=== PATIENT | female | born 1995 | race American Indian/Alaskan Native ===

== ENCOUNTER 2021-07-09 14:56 | Inpatient (IN) | payer SELFPAY ==
[2021-07-09] MEDS ORDERED: LACTATED RINGERS 1,000 ML ONE ×2 (15:50→17:15)
[2021-07-09] MEDS ORDERED: fentaNYL 100 MCG/2 ML INJ ONE (17:15)
--- NOTE | 2021-07-09 17:29 | History and Physical Report ---
History of Present Illness Date of examination: 07/09/21 Date of admission: 07/09/21 14:57 Chief complaint: at History of present illness: at 39.4wks by pt report with EDC 07/12/21. Pt was taken via ambulance from [facility] where her papers were held and using urdu/creole clip wrapper phone per our triage nurse pt c/o ctx, denies LOF or vag bleed; pt admits to movement. No records, however pt told the triage nurse that she had care in [place]. Past History Past Medical History: no pertinent history - Obstetrical History : 1 Medications and Allergies Allergies Allergy/AdvReac Type Severity Reaction Status Date / Time No Known Allergies Allergy Verified 07/09/21 17:11 Active Meds: Active Medications Acetaminophen (Acetaminophen 325 Mg Tab) 650 mg PO Q4H PRN PRN Reason: Pain, Mild (1-3) Carboprost Tromethamine (Carboprost Tromethamine 250 Mcg/1 Ml Inj) 250 mcg IM ONCE PRN PRN Reason: Uterine Bleeding Ephedrine Sulfate (Ephedrine Sulfate 50 Mg/1 Ml Inj) 10 mg IV Q2M PRN PRN Reason: Hypotension Fentanyl (Fentanyl 100 Mcg/2 Ml Inj) 100 mcg IV Q2H PRN PRN Reason: Pain,Severe (7-10) LABOR PAIN Lactated Ringer's (Lactated Ringers) 1,000 mls @ 125 mls/hr IV DIRECT ONOFRE Oxytocin/Sodium Chloride (Pitocin/Ns 30 Unit/500ml) 30 units in 500 mls @ 40 mls/hr IV TITR ONOFRE; Protocol Ampicillin Sodium (Ampicillin/Ns 2 Gm/100 Ml) 2 gm in 100 mls @ 100 mls/hr IV ONCE@1730 ONOFRE; Protocol Stop: 07/09/21 21:00 Lidocaine (Lidocaine (2%) 20 Mg/1 Ml Vial 20 Ml Mdv) 20 ml INFILTRATI ONCE@1730 ONOFRE Stop: 07/10/21 17:29 Loperamide HCl (Loperamide 2 Mg Cap) 2 mg PO ONCE PRN PRN Reason: give with Hemabate Methylergonovine Maleate (Methylergonovine Maleate 0.2 Mg/Ml Vial) 0.2 mg IM ONCE PRN PRN Reason: Uterine Bleeding Mineral Oil (Mineral Oil 30 Ml Oral Liqd) 30 ml PO QHS PRN PRN Reason: Constipation Misoprostol (Misoprostol 200 Mcg Tab) 800 mcg RI ONCE PRN PRN Reason: Uterine Bleeding Nalbuphine HCl (Nalbuphine 10 Mg/1 Ml Inj) 10 mg IV Q2H PRN PRN Reason: Pain, Moderate (4-6) Ondansetron HCl (Ondansetron 4 Mg/2 Ml Inj) 4 mg IV Q8H PRN PRN Reason: Nausea And Vomiting Oxytocin (Oxytocin 10 Unit/1 Ml Inj) 10 unit IM ONCE PRN PRN Reason: Uterine Bleeding Terbutaline Sulfate (Terbutaline 1 Mg/1 Ml Inj) 0.25 mg SUB-Q ONCE PRN PRN Reason: Hyperstimulation/Hypertonicity Review of Systems All systems: negative (painful ctx) - Vital Signs Vital signs: Vital Signs Pulse BP 81 121/75 07/09/21 14:58 07/09/21 14:58 Temp Pulse Resp BP Pulse Ox 97.9 F 102 H 18 121/69 100 07/09/21 15:09 07/09/21 17:03 07/09/21 17:24 07/09/21 16:14 07/09/21 17:03 - Physical Exam Breasts: Positive: deferred Cardiovascular: Regular rate Lungs: Positive: Normal air movement Abdomen: Positive: soft Vulva: both: normal Vagina: Positive: normal moisture Uterus: Positive: normal size (non-tender, gravid) Extremities: Positive: normal - Obstetrical FHR: category 1 Uterine Contraction Monitor Mode: External Cervical Dilatation: 5 Cervical Effacement Percentage: 90 station: -1 Uterine Contraction Pattern: Regular Uterine Contraction Intensity: Moderate Results Result Diagrams: 07/09/21 15:30 All other labs normal. Assessment and Plan Term IUP in labor, 5cm and previously 7cm by triage nurse, unknown GBS 1. Admit to labor and delivery, pt has no documents and name used by admissions as pt stated and therefore, will do walk in labs 2. Will give amp for GBS prophylaxis 3. U/S for gestational age, presentation, placental location, LEA; BPP 4. Expectant mgt and pain med as desired Plan of care discussed with pt.
[2021-07-09] MEDS ORDERED: ACETAMINOPHEN 325 MG TAB PO PRN (17:30)
[2021-07-09] MEDS ORDERED: LOPERAMIDE 2 MG CAP PO PRN (17:30)
[2021-07-09] MEDS ORDERED: ePHEDrine SULFATE 50 MG/1 ML INJ IV PRN ×2 (17:30→19:16)
[2021-07-09] MEDS ORDERED: NalbUPHINE 10 MG/1 ML INJ IV PRN (17:30)
[2021-07-09] MEDS ORDERED: METHYLERGONOVINE MALEATE 0.2 MG/ML VIAL IM PRN (17:30)
[2021-07-09] MEDS ORDERED: miSOPROStol 200 MCG TAB PR PRN (17:30)
[2021-07-09] MEDS ORDERED: ONDANSETRON 4 MG/2 ML INJ IV PRN (17:30)
[2021-07-09] MEDS ORDERED: fentaNYL 100 MCG/2 ML INJ IV PRN (17:30)
[2021-07-09] MEDS ORDERED: LIDOCAINE (2%) 20 MG/1 ML VIAL 20 ML MDV INFILTRATI SCH (17:30)
[2021-07-09] MEDS ORDERED: AMPICILLIN/NS 2 GM/100 ML 2 GM/100 ML BAG IV SCH (17:30)
[2021-07-09] MEDS ORDERED: TERBUTALINE 1 MG/1 ML INJ SUB-Q PRN (17:30)
[2021-07-09] MEDS ORDERED: CARBOPROST TROMETHAMINE 250 MCG/1 ML INJ IM PRN (17:30)
[2021-07-09] MEDS ORDERED: OXYTOCIN 10 UNIT/1 ML INJ IM PRN (17:30)
[2021-07-09] MEDS ORDERED: LACTATED RINGERS 1,000 ML IV SCH (17:30)
[2021-07-09 17:37] LABS: Hematocrit 32.3 % (30.3-42.9); Hemoglobin 10.5 gm/dl (10.1-14.3); Mean Corpuscular HGB Conc 33 % (30-34); Platelet Count 189 K/mm3 (140-440); Red Blood Count 4.77 M/mm3 (3.65-5.03); Red Cell Distribution Width 16.2 % (13.2-15.2)
[2021-07-09 17:43] LABS: Mean Corpuscular Volume 68 fl (79-97)
[2021-07-09 17:48] LABS: Amphetamine Screen,Urine Negative; Benzodiazepines Screen,Urine Negative; Cannabinoid Screen,Urine Negative; Cocaine Screen,Urine Negative; Methadone Screen,Urine Negative; Opiate Screen,Urine Negative
[2021-07-09] MEDS ORDERED: MINERAL OIL 30 ML ORAL LIQD PO PRN (18:00)
[2021-07-09] MEDS ORDERED: OXYTOCIN DRIP 30 UNITS/500 ML BAG IV SCH ×2 (18:00→22:00)
--- NOTE | 2021-07-09 18:43 | Ultrasound Report ---
OB ultrasound Biophysical profile INDICATION: well-being FINDINGS: BPD measures 35 weeks 0 days. Head circumference 38 weeks 1 day. Abdominal circumference 36 weeks 2 days. Femoral length 39 weeks 5 days. Cephalic presentation with single live intrauterine pr egnancy. Heart rate 1 44 bpm. LEA 8.4 cm. Weight 3144 g. Biophysical profile 6 out of 8 with no breathing movements identified. IMPRESSION: 1. Biophysical profile 6 out of 8. No breathing movements identified. 2. Ultrasound age 37 weeks 2 days. heart rate 1 44 bpm. Signer Name: Ulises Blair MD Signed: 07/09/2021 6:39 PM Workstation Name: [id number]
--- NOTE | 2021-07-09 19:10 | Anesthesia Consultation ---
Anesthesia Consult and Med Hx Date of service: 07/09/21 - Airway Anesthetic Teeth Evaluation: Poor ROM Head & Neck: Adequate Mental/Hyoid Distance: Adequate Mallampati Class: Class II Intubation Access Assessment: Good - Pulmonary Exam CTA: Yes - Cardiac Exam Cardiac Exam: RRR - Pre-Operative Health Status ASA Pre-Surgery Classification: ASA2 Proposed Anesthetic Plan: Epidural - Pulmonary Hx Smoking: No Hx Asthma: No Hx Respiratory Symptoms: No SOB: No COPD: No Home Oxygen Therapy: No Hx Pneumonia: No Hx Sleep Apnea: No - Cardiovascular System Hx Hypertension: No Hx Coronary Artery Disease: No Hx Heart Attack/AMI: No Hx Angina: No Hx Percutaneous Transluminal Coronary Angioplasty (PTCA): No - Central Nervous System Hx Neuromuscular Disorder: No - Endocrine Hx Insulin Dependent Diabetes: No Hx Non-Insulin Dependent Diabetes: No Hx Thyroid Disease: No - Hematic Hx Anemia: Yes - Other Systems Hx Alcohol Use: No Hx Substance Use: No Hx Obesity: Yes
[2021-07-09] MEDS ORDERED: NALOXONE 2 MG/2 ML INJ IV PRN (19:16)
--- NOTE | 2021-07-09 19:17 | Progress Note ---
Labor Epidural - Labor Epidural Start Time: 18:42 Stop Time: 18:57 Performed by:: ISAK RAYGOZA Procedure: Patient is requesting epidural for labor pain. H&P and labs reviewed. Procedure explained, questions answered, consent obtained. Patient placed in sitting position with monitors applied. Timeout performed immediately before start of procedure. Prep/drape in usual sterile fashion. Skin localized 3 mL 1% lidocaine at L[3]-L[4] interspace. 17-gauge Touhy epidural needle advanced to DANA with saline at [6] cm. No blood/CSF noted via epidural needle. Epidural catheter advanced to [10] cm. Negative aspiration for blood and CSF via catheter, negative response to test dose 3 ml 1.5% lidocaine w/ Epi. Sterile dressing applied followed by tape reinforcement. Patient tolerated procedure well. No immediate complications noted.
[2021-07-09] MEDS ORDERED: fentaNYL-BUPIV 2 MCG/ML-0.125% 200 MCG/100 ML BAG EPIDURAL SCH (20:00)
--- NOTE | 2021-07-09 21:28 | Ultrasound Report ---
US OB limited INDICATION / CLINICAL INFORMATION: placenta location COMPARISON: Same-day ultrasound. FINDINGS/IMPRESSION: Anterior placenta is free of the os. No placental lifting or separation. No evidence of placental hem atoma. Signer Name: Christopher Gutierrez MD Signed: 07/09/2021 9:23 PM Workstation Name: [id number]
[2021-07-09] MEDS ORDERED: AMPICILLIN/NS 1 GM/50 ML 1 GM/50 ML BAG IV SCH (22:30)
[2021-07-10] MEDS ORDERED: SODIUM CHLORIDE 0.9% 1000 ML 1,000 ML VG SCH (00:15)
[2021-07-10] MEDS ORDERED: MAGNESIUM HYDROXIDE (MOM) ORAL LIQD UDC PO PRN (04:34)
[2021-07-10] MEDS ORDERED: ONDANSETRON 4 MG/2 ML INJ IV PRN (04:34)
[2021-07-10] MEDS ORDERED: diphenhydrAMINE 25 MG CAP PO PRN (04:34)
[2021-07-10] MEDS ORDERED: BENZOCAINE/MENTHOL 20/0.5% TOP SPRAY 56 GM TP PRN (04:34)
[2021-07-10] MEDS ORDERED: PROMETHAZINE 25 MG TAB PO PRN (04:34)
[2021-07-10] MEDS ORDERED: LANOLIN/ZINC/DIMETHICONE (LANSINOH) 7 GM TP PRN (04:34)
[2021-07-10] MEDS ORDERED: HYDROcodone/ACETAMINOPHEN 5-325 MG TAB PO PRN (04:34)
[2021-07-10] MEDS ORDERED: ACETAMINOPHEN 325 MG TAB PO PRN (04:34)
[2021-07-10] MEDS ORDERED: WITCH HAZEL/ GLYCERIN PAD TP PRN (04:34)
--- NOTE | 2021-07-10 04:38 | Procedure Note ---
OB Delivery Note - Delivery Date of Delivery: 07/10/21 Surgeon: HENRY ARCE Estimated blood loss: 300cc - Vaginal Delivery position: OA Intrapartum events: meconium, precipitous labor- <3hr Delivery induction: none Delivery augmentation: rupture of membranes, pitocin Delivery monitor: external FHT, external uterine, internal FHT, internal uterine Route of delivery: Delivery placenta: spontaneous Delivery cord: 3 umbilical vessels Episiotomy: none Delivery laceration: 2nd degree Delivery repair: vicryl Anesthesia: epidural - Infant A at 1 minute: 8 at 5 minutes: 9
[2021-07-10] MEDS: IBUPROFEN 800 MG TAB PO SCH ×3 (05:20→16:26)
[2021-07-10 06:17] LABS: Hemoglobin 9.3 gm/dl (10.1-14.3); Mean Corpuscular HGB Conc 32 % (30-34); Platelet Count 191 K/mm3 (140-440); Red Blood Count 4.25 M/mm3 (3.65-5.03); Red Cell Distribution Width 16.2 % (13.2-15.2)
[2021-07-10 06:18] LABS: Mean Corpuscular Volume 68 fl (79-97)
--- NOTE | 2021-07-10 07:47 | Post Anesthesia Evaluation ---
- Post Anesthesia Evaluation Patient Participated: Yes Airway Patent: Yes Stable Respiratory Function: Yes Nausea/Vomiting: No Temp > 96.8F: Yes Pain Manageable: Yes Adequeate Hydration: Yes Anesthesia Complications: No Block Receding Appropriately: Yes Patient on Ventilator: No
--- NOTE | 2021-07-10 12:19 | Progress Note ---
Assessment and Plan PPD#1 with early signs of endomyometritis, leucocytosis present 1. Give augmentin and repeat cbc in am 2. Baby held by peds Subjective Date of service: 07/10/21 Principal diagnosis: PPD#1 Interval history: pt has no complaints. Pain controlled with meds, vag bleed less than a period. Pt is breast feeding. Pt denies dysuria Objective - Constitutional Vitals: Vital Signs - 12hr 07/10/21 07/10/21 07/10/21 00:18 00:23 00:28 Temperature Pulse Rate 67 79 68 Respiratory Rate Blood Pressure Blood Pressure [Right] O2 Sat by Pulse 99 99 98 Oximetry O2 Sat by Pulse Oximetry [ Anterior Bilateral Throughout] 07/10/21 07/10/21 07/10/21 00:29 00:33 00:38 Temperature Pulse Rate 68 72 71 Respiratory Rate Blood Pressure 119/71 Blood Pressure [Right] O2 Sat by Pulse 99 100 Oximetry O2 Sat by Pulse Oximetry [ Anterior Bilateral Throughout] 07/10/21 07/10/21 07/10/21 00:42 00:43 00:48 Temperature Pulse Rate 75 88 74 Respiratory Rate Blood Pressure 111/65 Blood Pressure [Right] O2 Sat by Pulse 100 100 Oximetry O2 Sat by Pulse Oximetry [ Anterior Bilateral Throughout] 07/10/21 07/10/21 07/10/21 00:53 00:57 00:58 Temperature Pulse Rate 78 83 73 Respiratory Rate Blood Pressure 108/62 Blood Pressure [Right] O2 Sat by Pulse 100 100 Oximetry O2 Sat by Pulse Oximetry [ Anterior Bilateral Throughout] 07/10/21 07/10/21 07/10/21 01:03 01:08 01:12 Temperature Pulse Rate 81 73 67 Respiratory Rate Blood Pressure 112/60 Blood Pressure [Right] O2 Sat by Pulse 100 100 Oximetry O2 Sat by Pulse Oximetry [ Anterior Bilateral Throughout] 07/10/21 07/10/21 07/10/21 01:13 01:18 01:23 Temperature Pulse Rate 73 86 72 Respiratory Rate Blood Pressure Blood Pressure [Right] O2 Sat by Pulse 100 99 100 Oximetry O2 Sat by Pulse Oximetry [ Anterior Bilateral Throughout] 07/10/21 07/10/21 07/10/21 01:27 01:28 01:33 Temperature Pulse Rate 80 81 78 Respiratory Rate Blood Pressure 110/68 Blood Pressure [Right] O2 Sat by Pulse 99 100 Oximetry O2 Sat by Pulse Oximetry [ Anterior Bilateral Throughout] 07/10/21 07/10/21 07/10/21 01:38 01:43 01:48 Temperature Pulse Rate 83 70 70 Respiratory Rate Blood Pressure 121/68 Blood Pressure [Right] O2 Sat by Pulse 99 98 99 Oximetry O2 Sat by Pulse Oximetry [ Anterior Bilateral Throughout] 07/10/21 07/10/21 07/10/21 01:53 01:58 02:03 Temperature Pulse Rate 79 96 H 86 Respiratory Rate Blood Pressure 124/88 Blood Pressure [Right] O2 Sat by Pulse 99 100 100 Oximetry O2 Sat by Pulse Oximetry [ Anterior Bilateral Throughout] 07/10/21 07/10/21 07/10/21 02:08 02:13 02:18 Temperature Pulse Rate 85 92 H 83 Respiratory Rate Blood Pressure Blood Pressure [Right] O2 Sat by Pulse 99 99 100 Oximetry O2 Sat by Pulse Oximetry [ Anterior Bilateral Throughout] 07/10/21 07/10/21 07/10/21 02:23 02:28 02:33 Temperature Pulse Rate 105 H 72 89 Respiratory Rate Blood Pressure Blood Pressure [Right] O2 Sat by Pulse 100 98 100 Oximetry O2 Sat by Pulse Oximetry [ Anterior Bilateral Throughout] 07/10/21 07/10/21 07/10/21 02:37 02:38 02:43 Temperature Pulse Rate 87 100 H 90 Respiratory Rate Blood Pressure 122/65 126/85 Blood Pressure [Right] O2 Sat by Pulse 100 Oximetry O2 Sat by Pulse Oximetry [ Anterior Bilateral Throughout] 07/10/21 07/10/21 07/10/21 02:49 02:51 02:54 Temperature 98.8 F Pulse Rate 94 H 86 Respiratory 18 Rate Blood Pressure Blood Pressure [Right] O2 Sat by Pulse 100 100 Oximetry O2 Sat by Pulse Oximetry [ Anterior Bilateral Throughout] 07/10/21 07/10/21 07/10/21 02:59 03:04 03:09 Temperature Pulse Rate 86 81 80 Respiratory Rate Blood Pressure Blood Pressure [Right] O2 Sat by Pulse 100 100 100 Oximetry O2 Sat by Pulse Oximetry [ Anterior Bilateral Throughout] 07/10/21 07/10/21 07/10/21 03:14 03:19 03:20 Temperature Pulse Rate 86 81 81 Respiratory Rate Blood Pressure 125/67 Blood Pressure [Right] O2 Sat by Pulse 100 100 Oximetry O2 Sat by Pulse Oximetry [ Anterior Bilateral Throughout] 07/10/21 07/10/21 07/10/21 03:24 03:29 03:34 Temperature Pulse Rate 79 81 74 Respiratory Rate Blood Pressure Blood Pressure [Right] O2 Sat by Pulse 100 100 100 Oximetry O2 Sat by Pulse Oximetry [ Anterior Bilateral Throughout] 07/10/21 07/10/21 07/10/21 03:39 03:44 03:49 Temperature Pulse Rate 72 75 76 Respiratory Rate Blood Pressure 125/69 Blood Pressure [Right] O2 Sat by Pulse 100 99 99 Oximetry O2 Sat by Pulse Oximetry [ Anterior Bilateral Throughout] 07/10/21 07/10/21 07/10/21 03:54 03:59 04:04 Temperature Pulse Rate 83 80 76 Respiratory Rate Blood Pressure Blood Pressure [Right] O2 Sat by Pulse 100 99 99 Oximetry O2 Sat by Pulse Oximetry [ Anterior Bilateral Throughout] 07/10/21 07/10/21 07/10/21 04:09 04:14 04:19 Temperature Pulse Rate 68 72 71 Respiratory Rate Blood Pressure 126/70 Blood Pressure [Right] O2 Sat by Pulse 100 99 99 Oximetry O2 Sat by Pulse Oximetry [ Anterior Bilateral Throughout] 07/10/21 07/10/21 07/10/21 04:24 04:29 04:30 Temperature 98.3 F Pulse Rate 95 H 78 73 Respiratory 16 Rate Blood Pressure Blood Pressure 116/68 [Right] O2 Sat by Pulse 100 100 98 Oximetry O2 Sat by Pulse Oximetry [ Anterior Bilateral Throughout] 07/10/21 07/10/21 07/10/21 04:34 04:39 04:44 Temperature Pulse Rate 71 66 66 Respiratory Rate Blood Pressure Blood Pressure [Right] O2 Sat by Pulse 100 99 99 Oximetry O2 Sat by Pulse Oximetry [ Anterior Bilateral Throughout] 07/10/21 07/10/21 07/10/21 05:00 05:20 08:01 Temperature 98.6 F Pulse Rate 86 Respiratory 16 18 Rate Blood Pressure 96/56 Blood Pressure [Right] O2 Sat by Pulse 100 Oximetry O2 Sat by Pulse 98 Oximetry [ Anterior Bilateral Throughout] 07/10/21 10:05 Temperature Pulse Rate Respiratory Rate Blood Pressure Blood Pressure [Right] O2 Sat by Pulse Oximetry O2 Sat by Pulse 98 Oximetry [ Anterior Bilateral Throughout] General appearance: Present: no acute distress - Neck Neck: normal ROM - Respiratory Respiratory effort: normal - Breasts Breasts: deferred - Cardiovascular Rhythm: regular Extremities: No edema - Gastrointestinal General gastrointestinal: Present: soft, non-tender - Genitourinary Female genitourinary: other (Fundus firm 1cm below umbilicus with mild tenderness; Lochia small) - Neurologic Neurologic: moves all extremities - Psychiatric Psychiatric: cooperative - Labs CBC & Chem 7: 07/10/21 06:05 Labs: Abnormal lab results 07/09/21 07/09/21 07/10/21 Range/Units 15:30 17:30 06:05 WBC 11.2 H 16.7 H (4.5-11.0) K/mm3 Hgb 9.3 L (10.1-14.3) gm/dl Hct 29.0 L (30.3-42.9) % MCV 68 L 68 L (79-97) fl MCH 22 L 22 L (28-32) pg RDW 16.2 H 16.2 H (13.2-15.2) % Membranes Rupture Positive A (Negative) Medications & Allergies - Medications Allergies/Adverse Reactions: Allergies No Known Allergies Allergy (Verified 07/09/21 17:11) Active Medications: Generic Name Dose Route Start Last Admin Trade Name Freq PRN Reason Stop Dose Admin Acetaminophen 650 mg 07/10/21 04:34 Acetaminophen 325 Mg Tab PO Q4H PRN Pain MILD(1-3)/Fever >100.5/GARCIA Hydrocodone Bitart/Acetaminophen 2 each 07/10/21 04:34 Hydrocodone/Acetaminophen 5-325 Mg Tab PO Q6H PRN Pain, Moderate (4-6) Benzocaine/Menthol 1 spray 07/10/21 04:34 Benzocaine/Menthol 20/0.5% [place] 56 Gm TP PRN PRN Episiotomy Pain Diphenhydramine HCl 25 mg 07/10/21 04:34 Diphenhydramine 25 Mg Cap PO Q6H PRN Itching Docusate Sodium 100 mg 07/10/21 10:00 Docusate Sodium 100 Mg Cap PO BID ONOFRE Ibuprofen 800 mg 07/10/21 05:00 07/10/21 05:20 Ibuprofen 800 Mg Tab PO 800 mg Q6HR ONOFRE Administration Magnesium Hydroxide 30 ml 07/10/21 04:34 Magnesium Hydroxide (Mom) Oral Liqd Udc PO HS PRN Constipation Multi-Ingredient Ointment 1 applic 07/10/21 04:34 Lanolin/Zinc/Dimethicone (Lansinoh) 7 Gm TP PRN PRN Sore Nipples Multivitamins/Iron/Calcium 1 each 07/10/21 10:00 [id number] Fumarate-Folic Acid Vit Tab PO QDAY ONOFRE Ondansetron HCl 4 mg 07/10/21 04:34 Ondansetron 4 Mg/2 Ml Inj IV Q8H PRN Nausea And Vomiting Promethazine HCl 25 mg 07/10/21 04:34 Promethazine 25 Mg Tab PO Q6H PRN Nausea And Vomiting Sodium Chloride 10 ml 07/10/21 05:00 Sodium Chloride 0.9% 10 Ml Flush Syringe IV PRN PRN LINE FLUSH [place]/Glycerin 1 each 07/10/21 04:34 [place]/ Glycerin Pad TP PRN PRN Hemorrhoid/cleansing/soothing
[2021-07-10] MEDS: AMOXICILLIN/K CLAV 875/125MG TAB PO SCH (14:10)
[2021-07-10] MEDS: PRENATAL VIT27-FE FUMARATE-FOLIC ACID VIT TAB PO SCH (14:17)
[2021-07-10] MEDS: DOCUSATE SODIUM 100 MG CAP PO SCH (14:18)
[2021-07-11] MEDS: DOCUSATE SODIUM 100 MG CAP PO SCH ×3 (00:11→23:03)
[2021-07-11] MEDS: IBUPROFEN 800 MG TAB PO SCH ×5 (00:11→23:04)
[2021-07-11] MEDS: AMOXICILLIN/K CLAV 875/125MG TAB PO SCH ×3 (00:11→23:03)
[2021-07-11 08:29] LABS: Basophils # (Auto) 0.1 K/mm3 (0.0-0.1); Basophils % (Auto) 0.6 % (0.0-1.8); Eosinophils # (Auto) 0.2 K/mm3 (0.0-0.4); Eosinophils % (Auto) 1.6 % (0.0-4.3); Hematocrit 24.8 % (30.3-42.9); Hemoglobin 8.1 gm/dl (10.1-14.3); Lymphocytes # (Auto) 1.9 K/mm3 (1.2-5.4); Lymphocytes % (Auto) 17.4 % (13.4-35.0); Mean Corpuscular HGB Conc 33 % (30-34); Mean Corpuscular Volume 68 fl (79-97); Monocytes % (Auto) 8.6 % (0.0-7.3); Platelet Count 174 K/mm3 (140-440); Red Blood Count 3.65 M/mm3 (3.65-5.03)
[2021-07-11] MEDS: PRENATAL VIT27-FE FUMARATE-FOLIC ACID VIT TAB PO SCH (09:34)
--- NOTE | 2021-07-11 10:27 | Progress Note ---
Assessment and Plan A: day 2 S/P . Anemia. Endomyometritis. Awaiting follow up for safe discharge (patient is from [place] and has nothing for baby at current time; was brought to hospital from [facility]). P: Oral iron supplementation. Continue oral augmentin. sanitation worker to see patient to further help with community resources for safe discharge (pt. plans to stay in [place]). Will discharge patient when cleared by case management; anticipate later today or tomorrow. Subjective - Subjective Date of service: 07/11/21 Principal diagnosis: PPD#2 Patient reports: appetite normal, voiding normally, pain well controlled, flatus, ambulating normally, no dizzy ambulation, no nauseated [place]: doing well Objective - Vital Signs Latest vital signs: Vital Signs Temp Pulse Resp BP Pulse Ox Pulse Ox 07/11/21 09:34 16 07/11/21 08:51 98.0 F 80 18 112/68 99 07/11/21 06:00 18 07/11/21 01:11 18 07/11/21 00:56 98.4 F 71 18 105/61 100 07/11/21 00:11 18 07/10/21 20:00 100 07/10/21 16:59 98.0 F 80 18 99/52 100 07/10/21 12:15 98.2 F 96 H 18 125/67 100 Intake and Output 07/10/21 07/11/21 07/11/21 23:59 07:59 15:59 Intake Total 600 720 Output Total 450 Balance 150 720 Intake: Oral 240 240 Intake, Free Water 360 480 Output: Urine 450 Void 450 Other: Total, Intake Amount 240 240 Total, Output Amount 450 # Voids Void 1 1 - Exam Cardiovascular: Present: Regular rate, No murmurs Lungs: Present: Clear to auscultation Abdomen: Present: normal appearance, soft. Absent: distention, tenderness, guarding, rigidity Uterus: Present: normal, firm, fundal height below umbilicus. Absent: bogginess, tenderness Extremities: Absent: tenderness, edema - Labs Labs: Abnormal lab results 07/11/21 Range/Units 07:52 Hgb 8.1 L (10.1-14.3) gm/dl Hct 24.8 L (30.3-42.9) % MCV 68 L (79-97) fl MCH 22 L (28-32) pg RDW 16.0 H (13.2-15.2) % Wise % (Auto) 8.6 H (0.0-7.3) % Wise # (Auto) 1.0 H (0.0-0.8) K/mm3 Seg Neutrophils % 71.8 H (40.0-70.0) % Seg Neutrophils # 7.9 H (1.8-7.7) K/mm3
[2021-07-11] MEDS: FERROUS SULFATE 325 MG TAB PO SCH ×2 (11:54→23:03)
--- NOTE | 2021-07-12 07:22 | Progress Note ---
Assessment and Plan A: day 2 S/P . Anemia. P: Discharge patient home today. Discussed with patient discharge instructions and warning signs. Advised patient to take prescribed medications at home (Rx written for Augmentin, Ferrous Sulfate, and Vitamins). Advised patient to avoid intercourse, lifting, housework. Advised patient to follow up at [facility] in 2 weeks. Patient voiced understanding of instructions. Subjective - Subjective Date of service: 07/12/21 Principal diagnosis: PPD#2 Patient reports: appetite normal, voiding normally, pain well controlled, flatus, no dizzy ambulation, no nauseated [place]: doing well (baby under bili lights) Objective - Vital Signs Latest vital signs: Vital Signs Temp Pulse Resp BP BP Pulse Ox Pulse Ox 07/12/21 00:12 98.6 F 88 18 123/76 99 07/11/21 23:04 12 07/11/21 20:40 98 07/11/21 19:27 97.5 F L 99 H 18 118/81 98 07/11/21 17:39 16 07/11/21 09:34 16 07/11/21 09:25 100 07/11/21 08:51 98.0 F 80 18 112/68 99 Intake and Output 07/11/21 07/11/21 07/12/21 15:59 23:59 07:59 Intake Total 240 Balance 240 Intake: Intake, Free Water 240 Other: # Voids Void 1 - Exam Cardiovascular: Present: Regular rate, No murmurs Lungs: Present: Clear to auscultation Abdomen: Present: normal appearance, soft. Absent: distention, tenderness, guarding, rigidity Uterus: Present: normal, firm, fundal height below umbilicus. Absent: bogginess, tenderness Extremities: Absent: tenderness, edema - Labs Labs: Abnormal lab results 07/11/21 Range/Units 07:52 Hgb 8.1 L (10.1-14.3) gm/dl Hct 24.8 L (30.3-42.9) % MCV 68 L (79-97) fl MCH 22 L (28-32) pg RDW 16.0 H (13.2-15.2) % [place] % (Auto) 8.6 H (0.0-7.3) % [place] # (Auto) 1.0 H (0.0-0.8) K/mm3 Seg Neutrophils % 71.8 H (40.0-70.0) % Seg Neutrophils # 7.9 H (1.8-7.7) K/mm3
--- NOTE | 2021-07-12 07:26 | Discharge Summary ---
Providers - Providers Date of Admission: 07/09/21 14:57 Date of discharge: 07/12/21 Attending physician: ANYA WHITFIELD Primary care physician: ANYA WHITFIELD Hospitalization Reason for admission: active labor, rupture of membranes Delivery: Laceration: 2nd degree Other procedures: none Discharge diagnosis: IUP at term delivered baby: female Pertinent studies: Labs Hospital course: Stable hospital course. Condition at discharge: Good Disposition: 01 HOME / SELF CARE / HOMELESS - Discharge Diagnoses (1) Term delivered Status: Acute (2) Anemia Status: Acute Plan - Discharge Medications Prescriptions: Amoxicillin/Potassium Clav [Augmentin 875-125 Tablet] 1 each PO Q12H 5 Days #10 Ferrous Sulfate [Iron 325 MG] 325 mg PO BID 30 Days #60 Vit-Fe Fumar-FA [ Vitamin] 1 tab PO QDAY 30 Days #30 tablet - Provider Discharge Summary Activity: routine, no sex for 6 weeks, no heavy lifting 4 weeks, no strenuous exercise Diet: routine Instructions: routine Additional instructions: Take iron supplements, vitamin and Augmentin as prescribed. Follow up at [facility] in 2 weeks. Call your doctor immediately for: * Fever > 100.5 * Heavy vaginal bleeding ( >1 pad per hour) * Severe persistent headache * Shortness of breath * Reddened, hot, painful area to leg or breast - Follow up plan Follow up: MEAGAN KUMAR CNM [Advanced Practice Nurse] - 14 Days Forms: [facility] Discharge Summary
[2021-07-12] MEDS: FERROUS SULFATE 325 MG TAB PO SCH (10:16)
[2021-07-12] MEDS: DOCUSATE SODIUM 100 MG CAP PO SCH (10:16)
[2021-07-12] MEDS: AMOXICILLIN/K CLAV 875/125MG TAB PO SCH (10:16)
[2021-07-12] MEDS: PRENATAL VIT27-FE FUMARATE-FOLIC ACID VIT TAB PO SCH (10:17)
[2021-07-12 16:52] VITALS: BP 112/73
== END 2021-07-12 18:52 | disposition home or self-care (01) | DRG 806 ==
LOC: TRG 14:56 → LD 14:57 → APU 14:57 → LD 17:15 → TRG 17:17 → OB 07-10 05:14
PROVIDERS: ADMIT Obstetrics & Gynecology; ATTEND Obstetrics & Gynecology
PROC: 10E0XZZ Delivery of Products of Conception, External Approach (ICD-10-PCS; principal; 2021-07-10)
PROC: 0KQM0ZZ Repair Perineum Muscle, Open Approach (ICD-10-PCS; 2021-07-10)
PROC: 3E0R3BZ Introduction of Anesthetic Agent into Spinal Canal, Percutaneous Approach (ICD-10-PCS; 2021-07-10)
PROC: 00HU33Z Insertion of Infusion Device into Spinal Canal, Percutaneous Approach (ICD-10-PCS; 2021-07-10)
DX: O77.0 Labor and delivery complicated by meconium in amniotic fluid (principal); O86.12 Endometritis following delivery; Z37.0 Single live birth; Z3A.39 39 weeks gestation of pregnancy; O62.3 Precipitate labor; O70.1 Second degree perineal laceration during delivery; O90.81 Anemia of the puerperium
CPT/HCPCS: 36415; 76815; 76816; 76819; 80307; 84112; 85025; 85027; 86592; 86706; 86762; 86850; 86900; 86901; 87806; 99211; G0378; J3490; G0463; J0290; J2590; J3010; J7120; U0003